=== PATIENT | female | born 1995 | race American Indian/Alaskan Native ===

== ENCOUNTER 2017-02-17 12:38 | Inpatient (IN) | payer OTHER ==
[2017-02-17] MEDS ORDERED: Sodium Chloride 0.9% 1,000 ML IV ONE (13:50)
[2017-02-17] MEDS ORDERED: Sodium Chloride 0.9% 1,000 ML ONE (13:59)
[2017-02-17 14:04] LABS: BASO # 0.1 K/uL (0.0-0.2); BASO % 0.6 % (0.0-2.0); EOS % 0.3 % (0.0-4.0); HEMATOCRIT 13.5 % (34.0-47.0); LYMPH # 2.5 K/uL (1.0-4.3); LYMPH % 23.2 % (20.0-40.0); MEAN CELL VOLUME 52.5 fL (81.0-99.0); MEAN CORPUSCULAR HEMOGLOBIN 14.4 pg (27.0-31.0); MEAN CORPUSCULAR HGB CONC 27.4 g/dL (33.0-37.0); MEAN PLATELET VOLUME 8.6 fL (7.2-11.7); MONO # 0.5 K/uL (0.0-0.8); MONO % 4.9 % (0.0-10.0); NRBC % 0.2 % (0.0-2.0); RED CELL DISTRIBUTION WIDTH 21.1 % (11.5-14.5)
[2017-02-17 14:12] LABS: CHLORIDE 103 mmol/L (98-107); INR 1.1; POTASSIUM 3.8 mmol/L (3.6-5.2); SODIUM 143 mmol/L (132-148)
[2017-02-17 14:14] LABS: BILIRUBIN,TOTAL 0.2 mg/dL (0.2-1.3); GFR AFRICAN-AMERICAN > 60
[2017-02-17 14:15] LABS: ALB/GLOB RATIO 1.5 (1.0-2.1); ALKALINE PHOSPHATASE 55 U/L (38-126); ALT/SGPT 13 U/L (9-52); AST/SGOT 32 U/L (14-36); BLOOD UREA NITROGEN 8 mg/dL (7-17); CARBON DIOXIDE 23 mmol/L (22-30); GLUCOSE,RANDOM 89 mg/dL (65-105); TOTAL PROTEIN 7.1 g/dL (6.3-8.3)
--- NOTE | 2017-02-17 15:59 | C.PDOC ---
Time Seen by Provider: 02/17/17 13:43 Chief Complaint (Nursing): Female Genitourinary History Per: Patient Onset/Duration Of Symptoms: Days (about 3 weeks) Current Symptoms Are (Timing): Still Present Severity: Moderate Alleviating Factors: None Additional History Per: Prior Records Abnormal Vaginal Bleeding: Yes Past Medical History Reviewed: Historical Data, Nursing Documentation, Vital Signs Vital Signs: Last Vital Signs Temp 98.0 F 02/17/17 13:05 Pulse 105 H 02/17/17 14:24 Resp 18 02/17/17 14:24 BP 110/49 L 02/17/17 14:24 Pulse Ox 99 02/17/17 14:24 - Medical History PMH: No Chronic Diseases Surgical History: No Surg Hx Family History: States: Unknown Family Hx - Social History Hx Tobacco Use: No Hx Alcohol Use: No Hx Substance Use: No - Immunization History Hx Tetanus Toxoid Vaccination: No Hx Influenza Vaccination: No Hx Pneumococcal Vaccination: No Review Of Systems Except As Marked, All Systems Reviewed And Found Negative. Constitutional: Positive for: Weakness. Negative for: Fever Cardiovascular: Positive for: Light Headedness. Negative for: Chest Pain Respiratory: Positive for: SOB with Excertion. Negative for: Hemoptysis Gastrointestinal: Negative for: Vomiting, Melena, Hematochezia, Hematemesis Genitourinary: Positive for: Vaginal Bleeding Musculoskeletal: Negative for: Neck Pain Skin: Negative for: Rash Neurological: Negative for: Weakness, Numbness, Seizures, Altered Mental Status Physical Exam - Physical Exam Appears: No Acute Distress Skin: Warm, Dry, Pale Head: Atraumatic, Normacephalic Eye(s): bilateral: PERRL, EOMI, Conjunctiva Pale Neck: Normal ROM, Supple Cardiovascular: Rhythm Regular Respiratory: Normal Breath Sounds, No Accessory Muscle Use Gastrointestinal/Abdominal: Soft Back: No CVA Tenderness Extremity: Normal ROM Neurological/Psych: Oriented x3, Normal Motor, Normal Sensation ED Course And Treatment - Laboratory Results Result Diagrams: 02/17/17 14:00 02/17/17 14:00 Lab Interpretation: Abnormal Interpretation Of Abnormal: Severe anemia. O2 Sat by Pulse Oximetry: 99 Pulse Ox Interpretation: Normal Progress Note: Pt was evaluated by Dr. Medrano (ICU). He states pt can be admitted on telemery floor. - Physician Consult Information Physician Contacted: Raquel A Rory ([employer]) Outcome Of Conversation: She wants pt to be admitted on medical service. She will consult. Progress - Interventions Interventions:: Observation, Intravenous fluid - Medications Administered Intravenous: Other (pRBC) - Data Reviewed Data Reviewed: Lab, Old records - Patient Status Patient status: Partially improved - Critical Care Citical Care: Excluding Proc Time Critical Care Time: 45 minutes - Continuity of Care Discussed patient case with:: Patient, ED Nurse, On-call PMD-pt unassigned Discussed pt. case with [employer] financial[employer] consultant/specialty: Obstetrics/Gynecology, Pulmonary/ Crit. Care - Patient Plan Patient Plan: Admission, Telemetry Disposition Discussed With DrGiorgio: Oren Kearns Comment: He accepted pt on hospitalist service. Doctor Will See Patient In The: Hospital Counseled Patient/Family Regarding: Studies Performed, Diagnosis - Disposition Disposition: HOSPITALIZED Disposition Time: 16:00 Condition: SERIOUS - Clinical Impression Clinical Impression: Severe anemia, Abnormal vaginal bleeding
[2017-02-17 16:15] VITALS: O2SAT 100
--- NOTE | 2017-02-17 16:27 | CP.PCM.HP ---
<Angely Escalante - Last Filed: 02/17/17 17:31> History of Present Illness - History of Present Illness History of Present Illness: Internal medicine H & P for Hospitalist service- Angely Escalante, PGY-1 Pt S & E at bedside. 21F w/no sig PMH admitted for symptomatic severe anemia x 3 weeks. Pt reports she started a normal period with normal blood flow/pad usage. Pt reports that her period just continued, becoming heavier over time until the past 2 weeks she has been using 1 super absorbant pad per hour, changing them when saturated. Pt reports blood flow is bright pink w/dark red blood clots. Pt reports family member recommended she come to hospital for evaluation last week , however patient did not report to ED until today due to B/L flank pains- sharp , non radiating, severe (09/19) intensity- did not take any thing to alleviate pain- came to hospital. Admits to SOB, POWELL, CARTWRIGHT, dizziness, N, blurry vision, palpitations with movement. Denies emesis, fevers, chills, constipation, diarrhea, hematuria, hematochezia, hemoptysis, cough, congestion, rhinorrhea. PMH: Denies PSH: Denies All: Denies SH: Denies ETOH, Tobacco, illicit drug use FH: Adopted- unknown PMD: Denies Outpatient obgyn: Denies Present on Admission - Present on Admission Any Indicators Present on Admission: No History of DVT/PE: No History of Uncontrolled Diabetes: No Urinary Catheter: No Decubitus Ulcer Present: No Review of Systems - Review of Systems All systems: reviewed and no additional remarkable complaints except - Constitutional Constitutional: Chills, Headache. absent: Fever - EENT Eyes: Blurred Vision, Change in Vision Ears: Dizziness Nose/Mouth/Throat: absent: Nasal Congestion, Sore Throat - Cardiovascular Cardiovascular: Dyspnea on Exertion, Palpitations. absent: Chest Pain, Leg Edema - Respiratory Respiratory: absent: Cough, Hemoptysis - Gastrointestinal Gastrointestinal: Abdominal Pain, Nausea. absent: Constipation, Diarrhea, Hematemesis, Hematochezia, Melena, Vomiting - Genitourinary Genitourinary: absent: Difficulty Urinating, Dysuria, Hematuria, Pyuria - Reproductive: Female Reproductive:Female: Currently Menstual, Heavy Menses, Abnormal Vaginal Bleeding , Vaginal Odor - Menstruation Menstruation: Abnormal Vaginal Bleeding - Musculoskeletal Musculoskeletal: absent: Back Pain, Numbness, Tingling - Integumentary Integumentary: absent: Lesions, New Lesions - Neurological Neurological: Dizziness. absent: Weakness Past Patient History - Past Social History Smoking Status: Never Smoked - PSYCHIATRIC Hx Substance Use: No - SURGICAL HISTORY Hx Surgeries: No - ANESTHESIA Hx Anesthesia: No Meds Allergies/Adverse Reactions: Allergies Allergy/AdvReac Type Severity Reaction Status Date / Time No Known Allergies Allergy Unverified 02/17/17 13:05 Physical Exam - Constitutional Appears: Non-toxic, No Acute Distress, Younger Than Stated Age - Head Exam Head Exam: ATRAUMATIC, NORMAL INSPECTION, NORMOCEPHALIC - Eye Exam Eye Exam: EOMI, Normal appearance, PERRL. absent: Scleral icterus Pupil Exam: NORMAL ACCOMODATION, PERRL - ENT Exam ENT Exam: Mucous Membranes Moist, Normal Exam Additional comments: under tongue - pale - Neck Exam Neck exam: Positive for: Full Rom, Normal Inspection - Respiratory Exam Respiratory Exam: Clear to Auscultation Bilateral, NORMAL BREATHING PATTERN. absent: Chest Wall Tenderness, Decreased Breath Sounds, Rales, Rhonchi, Wheezes , Respiratory Distress - Cardiovascular Exam Cardiovascular Exam: Tachycardia, +S1, +S2 - GI/Abdominal Exam GI & Abdominal Exam: Normal Bowel Sounds, Soft, Tenderness (B/L upper flanks). absent: Distended, Firm, Guarding, Hernia, Rigid - Extremities Exam Extremities exam: Positive for: full ROM, normal inspection. Negative for: pedal edema, tenderness - Back Exam Back exam: FULL ROM, NORMAL INSPECTION - Neurological Exam Neurological exam: Alert, CN II-XII Intact, Oriented x3 - Psychiatric Exam Psychiatric exam: Normal Affect, Normal Mood - Skin Skin Exam: Dry, Intact, Normal Color, Warm Results - Vital Signs Recent Vital Signs: Last Vital Signs Temp 98.4 F 02/17/17 16:14 Pulse 106 H 02/17/17 16:14 Resp 18 02/17/17 16:14 BP 116/65 02/17/17 16:14 Pulse Ox 100 02/17/17 16:14 - Labs Result Diagrams: 02/17/17 14:00 02/17/17 14:00 Labs: Laboratory Results - last 24 hr 02/17/17 14:00 WBC 11.0 H RBC 2.58 L Hgb 3.7 L* Hct 13.5 L MCV 52.5 L MCH 14.4 L MCHC 27.4 L RDW 21.1 H Plt Count 279 MPV 8.6 Neut % (Auto) 71.0 Lymph % (Auto) 23.2 [place] % (Auto) 4.9 Eos % (Auto) 0.3 Baso % (Auto) 0.6 Neut # 7.8 H Lymph # 2.5 [place] # 0.5 Eos # 0.0 Baso # 0.1 Differential Comment Smear Path Review PT 13.0 H INR 1.1 APTT 28 Sodium 143 Potassium 3.8 Chloride 103 Carbon Dioxide 23 Anion Gap 20 BUN 8 Creatinine 0.7 Est GFR ( Amer) > 60 Est GFR (Non-Af Amer) > 60 Random Glucose 89 Calcium 9.0 Total Bilirubin 0.2 AST 32 ALT 13 Alkaline Phosphatase 55 Total Protein 7.1 Albumin 4.2 Globulin 2.8 Albumin/Globulin Ratio 1.5 Beta HCG, Quant < 2.39 Blood Type O POSITIVE Antibody Screen Negative Assessment & Plan - Assessment and Plan (Free Text) Assessment: Severe symptomatic anemia Hgb 3.7 Currently bleeding Transfusing total of 4 units of pRBCs FU ferritin FU Iron FU TIBC FU % sat FU Prolactin level FU FSH FU LH FU Folate FU B12 FU retic count FU Haptoglobin Kilnman recs- Provera taper- 10mg TID x 7 days, 10mg BID x 7 days, 10mg QD x 7 days , FU TSH, FU FT4, FU Estradiol, Flagyl 500mg PO TID x 7 days Abdominal discomfort Tylenol PRN Zofran PRN FU transvaginal U/S FU pelvic U/S GI/DVT ppx SCDs Pepcid Contraindications to VTE ppx- bleed Dispo: Admit to tele VS Q4H Regular diet FU AM labs DW attending - Date & Time Date: 02/17/17 Time: 16:55 Decision To Admit - Pt Status Changed To: Hospital Disposition Of: Observation - . Bed Request Type: Telemetry Admitting Physician: Kenyatta Urrutia <Kenyatta Urrutia V - Last Filed: 02/17/17 22:49> Results - Vital Signs Recent Vital Signs: Last Vital Signs Temp 98.2 F 02/17/17 21:15 Pulse 95 H 02/17/17 21:15 Resp 17 02/17/17 21:15 BP 123/64 02/17/17 21:15 Pulse Ox 100 02/17/17 20:00 - Labs Result Diagrams: 02/17/17 14:00 02/17/17 14:00 Attending/Attestation - Attestation I have personally seen and examined this patient.: Yes I have fully participated in the care of the patient.: Yes I have reviewed all pertinent clinical information: Yes Notes (Text): Patient seen, evaluated in [facility] Bed 4 on 02/17/17 at approximately 4:25PM. Patient reporting abnormal heavy periods since at the age 14; Patient reports LMP about 3 weeks ago, using and changing sanitary napkin every hour, soaked through. Patient reports first time period has not stopped. Patient denies OCP use. Patient denies trauma/foreign body insertion/denies activity with sex toys. Patient has not had a formal workup for abnormal heavy infrequent periods. Patient reports she felt fatigue, near-syncope, tiredness, and not wanting to get out of bed since last week, and was advised by biological mom to come sooner but did not. Patient at time of examination receiving first unit of PRBC. Discussed the case in house cra, Dr. Valadez who also interviewed patient at bedside, advised hormone workup, and Provera PO titration, as well as US. Patient will likely need 3-4 units of PRBC given the severity of her anemia. Patient denies BRBPR, denies melanotic stool, denies tar stools. Patient is not sexually active at this time. Patient denies possibility of . Patient ordered for additional 2 units of PRBC. will follow-up hemoglobin in AM. Ordered for anema workup including iron studies, reti count, b12, haptoglobin, and folate. Admitting orders discussed with day-time resident. Help appreciated by Ob-gynecology service. Assessment/Plan 1)Symptomatic anemia * Observation telemetry * Hgb 3.7 * Vaginal bleeding the source * Will transfuse at least 3 units of PRBC overnight and may need additional unit in the AM * Ordered for ferritin, iron, TIBC, iron saturation, B12, folate, haptoglobin, reticulocyte count * Ob-in house cra consult: Dr. Valadez-->help appreciated; recommended to start Provera taper- 10mg TID x 7 days, 10mg BID x 7 days, 10mg QD x 7 days * ordered or prolactin, FSH, LH, estradiol * Flagyl 500mg PO TID x 7 days to cover for bacterial vaginosis 2) Abdominal discomfort * Tylenol PRN * Zofran PRN * FU transvaginal U/S * FU pelvic U/S * Flagyl 500mg PO TID x 7 days to cover for bacterial vaginosis 3) GI/DVT ppx * SCDs for DVT ppx * Pepcid 20mg PO bid for gi ppx * Contraindications to VTE ppx- bleed
--- NOTE | 2017-02-17 19:31 | CP.PCM.CON ---
History of Present Illness - History of Present Illness History of Present Illness: Patient seen and evaluated approximately 1645 hours: received in E.D. cubicle # 5 in good spirits. (Medical Attending Dr. Isabel with patient, completing her assessment) 21 y.o. LMP 01/26/17 to present (i.e., 3 weeks), c/o lightheadedness, dizziness, shortness of breath with ambulation x 1 week, and fatigue. Denies loss of consciousness. This in association of continual menstruation, heavier flow in this past 1 week. Changing sanitary napkin hourly. (+) clots. Onset of bilateral mid-torso pain this morning; pain scale 10/10 - has taken on pain meds. 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 This is the first time with prolonged menses. P Ob: nullip P PUPPY WALKER: 14 x 2-3 times per year until age 20; then monthly until LMP x 7. Denies STIs. 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 Not heterosexually active x >= 2 years. PMH: denies PSH: denies NKDA Meds: denies Soc Hx: denies tobacco, illicit drug use; social EtOH use. Moved from [place] 1 month ago; adjusting. 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 Fam Hx: adpoted - doesn't know biological family Review of Systems - Constitutional Constitutional: As Per HPI - Reproductive: Female Reproductive:Female: As Per HPI - Menstruation Menstruation: As Per HPI - Neurological Neurological: As Per HPI Past Patient History - Past Medical History & Family History Past Medical History?: No Pertinent Family History: Indeterminable - Past Social History Smoking Status: Never Smoked Alcohol: Social Drugs: Denies - CARDIAC Hx Cardiac Disorders: No - PULMONARY Hx Respiratory Disorders: No - NEUROLOGICAL Hx Neurological Disorder: No - HEENT Hx HEENT Problems: No - RENAL Hx Chronic Kidney Disease: No Other/Comment: UTI - ENDOCRINE/METABOLIC Hx Endocrine Disorders: No - HEMATOLOGICAL/ONCOLOGICAL Hx Blood Disorders: No - INTEGUMENTARY Hx Dermatological Problems: No - MUSCULOSKELETAL/RHEUMATOLOGICAL Hx Musculoskeletal Disorders: No Hx Falls: No - GASTROINTESTINAL Hx Gastrointestinal Disorders: No - GENITOURINARY/GYNECOLOGICAL Hx Genitourinary Disorders: No LMP:: 01/26/2017 : 0 Para: 0 Termination of : 0 - PSYCHIATRIC Hx Psychophysiologic Disorder: No Hx Substance Use: No - SURGICAL HISTORY Hx Surgeries: No - ANESTHESIA Hx Anesthesia: No Meds Allergies/Adverse Reactions: Allergies Allergy/AdvReac Type Severity Reaction Status Date / Time No Known Allergies Allergy Unverified 02/17/17 13:05 - Medications Medications: Current Medications Acetaminophen (Tylenol 325mg Tab) 650 mg PO Q6H PRN PRN Reason: Pain, moderate (4-7) Famotidine (Pepcid) 20 mg PO BID [facility] Medroxyprogesterone Acetate (Provera) 10 mg PO TID [facility] Stop: 02/24/17 18:01 Medroxyprogesterone Acetate (Provera) 10 mg PO DAILY [facility] Medroxyprogesterone Acetate (Provera) 10 mg PO BID [facility] Stop: 03/03/17 18:01 Metronidazole (Flagyl) 500 mg PO TID [facility] Stop: 02/24/17 18:01 Ondansetron HCl (Zofran Inj) 4 mg IVP Q6 PRN PRN Reason: Nausea/Vomiting Physical Exam - Constitutional Appears: Well, No Acute Distress - Head Exam Head Exam: NORMAL INSPECTION - Eye Exam Eye Exam: Normal appearance - Neck Exam Neck exam: Positive for: Full Rom, Normal Inspection - Respiratory Exam Respiratory Exam: Clear to Auscultation Bilateral - Cardiovascular Exam Cardiovascular Exam: Tachycardia - GI/Abdominal Exam GI & Abdominal Exam: Normal Bowel Sounds Additional comments: Obese - Exam External exam: NORMAL EXTERNAL EXAM Additional comments: (+) cervical motion tenderness. Anteverted uterus, 8 weeks. no appreciable adnexal masses. (+) bilateral adnexal discomfort to deep palpation. Moderate amount of dark brown blood on examining glove; (+) pungent/fishy odor. - Extremities Exam Extremities exam: Positive for: full ROM, normal inspection - Neurological Exam Neurological exam: Alert, Normal Gait, Oriented x3 - Psychiatric Exam Psychiatric exam: Normal Affect, Normal Mood Results - Vital Signs Recent Vital Signs: Last Vital Signs Temp 98.1 F 02/17/17 18:38 Pulse 91 H 02/17/17 18:38 Resp 16 02/17/17 18:38 BP 109/48 L 02/17/17 18:38 Pulse Ox 100 02/17/17 18:00 - Labs Result Diagrams: 02/17/17 14:00 02/17/17 14:00 Assessment & Plan - Assessment and Plan (Free Text) Assessment: 21 yo P0, menometrorrhagia with symptomatic anemia - admitted for blood transfusion. Start provera taper to stop menses. Patient to be evaluated by medical team for any other possible aetiology. From line assembler aircraft perspective, will assess for variation of PCOS, or other endocrine aetiology. Weight gain and stress of moving probable contributing factors. It was impressed upon patent to follow up with line assembler aircraft provider upon discharge. Recommend Dr. Acevedo, [facility], Friday mornings, [facility]. Patient expressed an understanding and agrees. Presumptive bacterial vaginitis - explained to patient; will treat. Patient in good condition. Plan: 1) Blood transfusion and related evaluation for anemia, per primary medical team 2) transvaginal ultrasound 3) Provera taper start now: 10 mg po TID x 7d, then BID x 7 days, then QD x 7 days. 4) LH, FSH, estradiol; prolactin; thyroid panel 5) Flagyl 500 mg p.o. BID x 7 days Thank you for the pleasure of this consultation - Date & Time Date: 02/17/17 Time: 17:00
[2017-02-18 01:00] LABS: IRON 106 ug/dL (37-170)
[2017-02-18 02:06] LABS: FOLATE 13.3 ng/mL
[2017-02-18 05:25] LABS: BASO # 0.1 K/uL (0.0-0.2); BASO % 0.5 % (0.0-2.0); EOS % 0.3 % (0.0-4.0); HEMATOCRIT 25.9 % (34.0-47.0); LYMPH # 2.9 K/uL (1.0-4.3); LYMPH % 29.1 % (20.0-40.0); MEAN CELL VOLUME 71.6 fL (81.0-99.0); MEAN CORPUSCULAR HGB CONC 32.1 g/dL (33.0-37.0); MEAN PLATELET VOLUME 9.1 fL (7.2-11.7); MONO # 0.7 K/uL (0.0-0.8); MONO % 6.8 % (0.0-10.0); NRBC % 0.2 % (0.0-2.0); RED CELL DISTRIBUTION WIDTH 34.9 % (11.5-14.5); WHITE BLOOD COUNT 9.8 K/uL (4.8-10.8)
[2017-02-18 05:40] LABS: CHLORIDE 105 mmol/L (98-107); POTASSIUM 3.9 mmol/L (3.6-5.2); SODIUM 140 mmol/L (132-148)
[2017-02-18 05:42] LABS: AST/SGOT 24 U/L (14-36); BILIRUBIN,TOTAL 1.6 mg/dL (0.2-1.3); CARBON DIOXIDE 21 mmol/L (22-30); GFR AFRICAN-AMERICAN > 60
[2017-02-18 05:43] LABS: ALB/GLOB RATIO 1.3 (1.0-2.1); ALKALINE PHOSPHATASE 41 U/L (38-126); ALT/SGPT 16 U/L (9-52); BLOOD UREA NITROGEN 10 mg/dL (7-17); GLUCOSE,RANDOM 84 mg/dL (65-105); MAGNESIUM 2.2 mg/dL (1.6-2.3); TOTAL PROTEIN 6.1 g/dL (6.3-8.3)
[2017-02-18 05:59] LABS: FSH 4.2 mIU/mL
[2017-02-18 06:49] LABS: ESTRADIOL (E2) 76.3 pg/mL
--- NOTE | 2017-02-18 09:43 | US ---
Pelvic ultrasound History: Vaginal bleeding. Comparison: None available. Technique: Real-time sonography was performed through the pelvis utilizing transabdominal and transvaginal techniques. Findings: Uterus: 7.7 x 4.2 x 5.2 centimeters. Retroverted. Endometrium is abnormally thickened measuring up to 2 centimeters. No areas of abnormal vascularity within the endometrium are demonstrated on color Doppler examination. Suggestion of an endometrial mass surrounded by fluid within the endometrial cavity. Right ovary: 3.6 x 2.7 x 3.8 centimeters. Subcentimeter follicles. Normal flow. Left ovary: 4.3 x 2.4 x 2.9 centimeters. Subcentimeter follicles. Normal flow. Small amount of free fluid noted within the posterior pelvic cul-de-sac. Impression: Abnormal endometrial thickening. Appearance is suggestive for a mass surrounded by fluid within the endometrial canal. This may represent blood clot and or endometrial polyp. Submucosal myoma or endometrial carcinoma are considered less likely possibilities although not entirely excluded. Continued interval followup sonographically and or correlation with pelvic MRI may be helpful if clinically indicated. These findings were preliminarily reported at 8:33 p.m. on 02/17/[address] Virgiina Mack from [employer].
[2017-02-18] MEDS ORDERED: Saccharomyces Boulardi 250 mg Cap PO SCH (10:00)
[2017-02-18 11:33] VITALS: RESP 18
--- NOTE | 2017-02-18 12:00 | CARD ---
APPROVED REPORT EKG Measurement Heart [id number] <Conclusion> Normal sinus rhythm Normal ECG
[2017-02-18 14:01] LABS: BASO # 0.1 K/uL (0.0-0.2); BASO % 0.6 % (0.0-2.0); EOS % 0.2 % (0.0-4.0); HEMATOCRIT 28.3 % (34.0-47.0); LYMPH # 2.3 K/uL (1.0-4.3); LYMPH % 21.5 % (20.0-40.0); MEAN CELL VOLUME 71.7 fL (81.0-99.0); MEAN CORPUSCULAR HEMOGLOBIN 22.7 pg (27.0-31.0); MEAN CORPUSCULAR HGB CONC 31.6 g/dL (33.0-37.0); MONO # 0.5 K/uL (0.0-0.8); MONO % 4.6 % (0.0-10.0); NRBC % 0.4 % (0.0-2.0); RED CELL DISTRIBUTION WIDTH 35.4 % (11.5-14.5); WHITE BLOOD COUNT 10.8 K/uL (4.8-10.8)
--- NOTE | 2017-02-18 14:12 | CP.PCM.DIS ---
<EscalanteAngely - Last Filed: 02/18/17 14:14> Provider - Provider Date of Admission: 02/17/17 16:02 Attending physician: Oren Kearns MD Primary care physician: None- refer to [facility] Consults: [facility] Time Spent in preparation of Discharge (in minutes): 60 Hospital Course - Lab Results Lab Results: Most Recent Lab Values WBC 10.8 K/uL (4.8-10.8) 02/18/17 13:56 RBC 3.95 Mil/uL (3.80-5.20) 02/18/17 13:56 Hgb 9.0 g/dL (11.0-16.0) L 02/18/17 13:56 Hct 28.3 % (34.0-47.0) L 02/18/17 13:56 MCV 71.7 fL (81.0-99.0) L 02/18/17 13:56 MCH 22.7 pg (27.0-31.0) L 02/18/17 13:56 MCHC 31.6 g/dL (33.0-37.0) L 02/18/17 13:56 RDW 35.4 % (11.5-14.5) H 02/18/17 13:56 Plt Count 205 K/uL (130-400) 02/18/17 13:56 MPV 9.0 fL (7.2-11.7) 02/18/17 13:56 Neut % (Auto) 73.1 % (50.0-75.0) 02/18/17 13:56 Lymph % (Auto) 21.5 % (20.0-40.0) 02/18/17 13:56 [place] % (Auto) 4.6 % (0.0-10.0) 02/18/17 13:56 Eos % (Auto) 0.2 % (0.0-4.0) 02/18/17 13:56 Baso % (Auto) 0.6 % (0.0-2.0) 02/18/17 13:56 Neut # 7.9 K/uL (1.8-7.0) H 02/18/17 13:56 Lymph # 2.3 K/uL (1.0-4.3) 02/18/17 13:56 [place] # 0.5 K/uL (0.0-0.8) 02/18/17 13:56 Eos # 0.0 K/uL (0.0-0.7) 02/18/17 13:56 Baso # 0.1 K/uL (0.0-0.2) 02/18/17 13:56 Differential Comment 02/17/17 14:00 Smear Path Review 02/17/17 14:00 Retic Count 2.2 % (0.5-1.5) H 02/18/17 00:25 PT 13.0 SECONDS (9.7-12.2) H 02/17/17 14:00 INR 1.1 02/17/17 14:00 APTT 28 SECONDS (21-34) 02/17/17 14:00 Sodium 140 mmol/L (132-148) 02/18/17 05:21 Potassium 3.9 mmol/L (3.6-5.2) 02/18/17 05:21 Chloride 105 mmol/L (98-107) 02/18/17 05:21 Carbon Dioxide 21 mmol/L (22-30) L 02/18/17 05:21 Anion Gap 18 (10-20) 02/18/17 05:21 BUN 10 mg/dL (7-17) 02/18/17 05:21 Creatinine 0.7 MG/DL (0.7-1.2) 02/18/17 05:21 Est GFR ( Amer) > 60 02/18/17 05:21 Est GFR (Non-Af Amer) > 60 02/18/17 05:21 Random Glucose 84 mg/dL (65-105) 02/18/17 05:21 Calcium 8.0 mg/dl (8.6-10.4) L 02/18/17 05:21 Magnesium 2.2 mg/dL (1.6-2.3) 02/18/17 05:21 Iron 106 ug/dL (37-170) 02/18/17 00:25 TIBC 437 ug/dL (250-450) 02/18/17 00:25 % Saturation 24 (20-55) 02/18/17 00:25 Ferritin 3.6 ng/mL 02/18/17 00:25 Total Bilirubin 1.6 mg/dL (0.2-1.3) H 02/18/17 05:21 AST 24 U/L (14-36) 02/18/17 05:21 ALT 16 U/L (9-52) 02/18/17 05:21 Alkaline Phosphatase 41 U/L (38-126) 02/18/17 05:21 Total Protein 6.1 g/dL (6.3-8.3) L 02/18/17 05:21 Albumin 3.5 g/dL (3.5-5.0) 02/18/17 05:21 Globulin 2.7 gm/dL (2.2-3.9) 02/18/17 05:21 Albumin/Globulin Ratio 1.3 (1.0-2.1) 02/18/17 05:21 Vitamin B12 264 pg/mL (239-931) 02/18/17 00:25 Folate 13.3 ng/mL 02/18/17 00:25 Free T4 1.24 ng/dL (0.78-2.19) 02/18/17 05:21 TSH 3rd Generation 4.10 mIU/L (0.46-4.68) 02/18/17 05:21 Estradiol (E2) Level 76.3 pg/mL 02/18/17 05:21 FSH 3rd Generation 4.2 mIU/mL 02/18/17 05:21 Prolactin 16.8 ng/mL (3.0-18.9) 02/18/17 05:21 Beta HCG, Quant < 2.39 mIU/ML 02/17/17 14:00 Blood Type O POSITIVE 02/17/17 14:00 Antibody Screen Negative 02/17/17 14:00 - Hospital Course Hospital Course: On hospital admission 21F w/no sig PMH admitted for symptomatic severe anemia x 3 weeks. Pt reports she started a normal period with normal blood flow/pad usage. Pt reports that her period just continued, becoming heavier over time until the past 2 weeks she has been using 1 super absorbant pad per hour, changing them when saturated. Pt reports blood flow is bright pink w/dark red blood clots. Pt reports family member recommended she come to hospital for evaluation last week , however patient did not report to ED until today due to B/L flank pains- sharp , non radiating, severe (09/19) intensity- did not take any thing to alleviate pain- came to hospital. Admits to SOB, POWELL, CARTWRIGHT, dizziness, N, blurry vision, palpitations with movement. Denies emesis, fevers, chills, constipation, diarrhea, hematuria, hematochezia, hemoptysis, cough, congestion, rhinorrhea. Hospital course Pt admitted to hospital for blood product administration and medical management of symptomatic anemia. Pt seen/evaluated by gynecology with recommendations for Provera. Pt consented for blood prodcuts, received 4 units pRBCs total - Hbg improved from 3.8 to 8.3. Bleeding decreased significantly with initial of Provera. Symptoms resolved with blood product administration. Iron studies, hormone studies were WNL. Pelvic ultrasound positive for abnormal endometrial thickening. Appearance suggestive for a mass surrounded by fluid within the endometrial canal. May represent blood clot or endometrial polyp. Submucosal myoma or endometrial carcinoma are considered less likely possibilities although not entirely excluded. Continued interval followup sonographically and or correlation with pelvic MRI may be helpful if clinically indicated. Pt stabilized, ready for discharge with close follow up in [facility]. Pt expresses understanding. Diagnoses menometorrhagia, severe symptomatic anemia On hospital discharge Patient cleared for discharge as per Dr. Urrutia. Patient is to follow up with the [facility] for the remaining pending test results that have not resulted yet as well as establishing gynecological health care. Pt has been given appointment for February 26 at 8am. Patient is being discharged on Provera taper as specified by inpatient gynecology. Patient is also being discharged on Flagyl and Floraster. Please complete all medications as specified. If you have a recurrence of symptoms, please return to hospital. Medications metroNIDAZOLE [Flagyl] 500 mg PO TID #21 tab Saccharomyces Boulardi [Florastor] 250 mg PO BID #14 cap MedroxyPROGESTERone [Provera] 10 mg PO DAILY #7 tab MedroxyPROGESTERone [Provera] 10 mg PO BID #14 tab MedroxyPROGESTERone [Provera] 10 mg PO TID #21 tab - Date & Time of H&P Date of H&P: 02/17/17 Time of H&P: 16:19 Discharge Exam - Head Exam Head Exam: NORMAL INSPECTION Discharge Plan - Discharge Medications Prescriptions: metroNIDAZOLE [Flagyl] 500 mg PO TID #21 tab Saccharomyces Boulardi [Florastor] 250 mg PO BID #14 cap MedroxyPROGESTERone [Provera] 10 mg PO DAILY #7 tab MedroxyPROGESTERone [Provera] 10 mg PO BID #14 tab MedroxyPROGESTERone [Provera] 10 mg PO TID #21 tab - Follow Up Plan Condition: SERIOUS Disposition: HOME/ ROUTINE Additional Instructions: Patient cleared for discharge as per Dr. Urrutia. Patient is to follow up with the [facility] clinic for the remaining pending test results that have not resulted yet as well as establishing gynecological health care. Pt has been given appointment for February 26 at 8am. Patient is being discharged on Provera taper as specified by inpatient gynecology. Patient is also being discharged on Flagyl and Floraster. Please complete all medications as specified. If you have a recurrence of symptoms, please return to hospital. Referrals: [facility] at [facility] [Outside] <Kenyatta Urrutia V - Last Filed: 02/18/17 14:42> Provider - Provider Date of Admission: 02/17/17 16:02 Attending physician: Oren Kearns MD Hospital Course - Lab Results Lab Results: Most Recent Lab Values WBC 10.8 K/uL (4.8-10.8) 02/18/17 13:56 RBC 3.95 Mil/uL (3.80-5.20) 02/18/17 13:56 Hgb 9.0 g/dL (11.0-16.0) L 02/18/17 13:56 Hct 28.3 % (34.0-47.0) L 02/18/17 13:56 MCV 71.7 fL (81.0-99.0) L 02/18/17 13:56 MCH 22.7 pg (27.0-31.0) L 02/18/17 13:56 MCHC 31.6 g/dL (33.0-37.0) L 02/18/17 13:56 RDW 35.4 % (11.5-14.5) H 02/18/17 13:56 Plt Count 205 K/uL (130-400) 02/18/17 13:56 MPV 9.0 fL (7.2-11.7) 02/18/17 13:56 Neut % (Auto) 73.1 % (50.0-75.0) 02/18/17 13:56 Lymph % (Auto) 21.5 % (20.0-40.0) 02/18/17 13:56 [place] % (Auto) 4.6 % (0.0-10.0) 02/18/17 13:56 Eos % (Auto) 0.2 % (0.0-4.0) 02/18/17 13:56 Baso % (Auto) 0.6 % (0.0-2.0) 02/18/17 13:56 Neut # 7.9 K/uL (1.8-7.0) H 02/18/17 13:56 Lymph # 2.3 K/uL (1.0-4.3) 02/18/17 13:56 [place] # 0.5 K/uL (0.0-0.8) 02/18/17 13:56 Eos # 0.0 K/uL (0.0-0.7) 02/18/17 13:56 Baso # 0.1 K/uL (0.0-0.2) 02/18/17 13:56 Differential Comment 02/17/17 14:00 Smear Path Review 02/17/17 14:00 Retic Count 2.2 % (0.5-1.5) H 02/18/17 00:25 PT 13.0 SECONDS (9.7-12.2) H 02/17/17 14:00 INR 1.1 02/17/17 14:00 APTT 28 SECONDS (21-34) 02/17/17 14:00 Sodium 140 mmol/L (132-148) 02/18/17 05:21 Potassium 3.9 mmol/L (3.6-5.2) 02/18/17 05:21 Chloride 105 mmol/L (98-107) 02/18/17 05:21 Carbon Dioxide 21 mmol/L (22-30) L 02/18/17 05:21 Anion Gap 18 (10-20) 02/18/17 05:21 BUN 10 mg/dL (7-17) 02/18/17 05:21 Creatinine 0.7 MG/DL (0.7-1.2) 02/18/17 05:21 Est GFR ( Amer) > 60 02/18/17 05:21 Est GFR (Non-Af Amer) > 60 02/18/17 05:21 Random Glucose 84 mg/dL (65-105) 02/18/17 05:21 Calcium 8.0 mg/dl (8.6-10.4) L 02/18/17 05:21 Magnesium 2.2 mg/dL (1.6-2.3) 02/18/17 05:21 Iron 106 ug/dL (37-170) 02/18/17 00:25 TIBC 437 ug/dL (250-450) 02/18/17 00:25 % Saturation 24 (20-55) 02/18/17 00:25 Ferritin 3.6 ng/mL 02/18/17 00:25 Total Bilirubin 1.6 mg/dL (0.2-1.3) H 02/18/17 05:21 AST 24 U/L (14-36) 02/18/17 05:21 ALT 16 U/L (9-52) 02/18/17 05:21 Alkaline Phosphatase 41 U/L (38-126) 02/18/17 05:21 Total Protein 6.1 g/dL (6.3-8.3) L 02/18/17 05:21 Albumin 3.5 g/dL (3.5-5.0) 02/18/17 05:21 Globulin 2.7 gm/dL (2.2-3.9) 02/18/17 05:21 Albumin/Globulin Ratio 1.3 (1.0-2.1) 02/18/17 05:21 Vitamin B12 264 pg/mL (239-931) 02/18/17 00:25 Folate 13.3 ng/mL 02/18/17 00:25 Free T4 1.24 ng/dL (0.78-2.19) 02/18/17 05:21 TSH 3rd Generation 4.10 mIU/L (0.46-4.68) 02/18/17 05:21 Estradiol (E2) Level 76.3 pg/mL 02/18/17 05:21 FSH 3rd Generation 4.2 mIU/mL 02/18/17 05:21 Prolactin 16.8 ng/mL (3.0-18.9) 02/18/17 05:21 Beta HCG, Quant < 2.39 mIU/ML 02/17/17 14:00 Blood Type O POSITIVE 02/17/17 14:00 Antibody Screen Negative 02/17/17 14:00 Attending/Attestation - Attestation I have personally seen and examined this patient.: Yes I have fully participated in the care of the patient.: Yes I have reviewed all pertinent clinical information, including history, physical exam and plan: Yes Notes (Text): Patient seen, examined and case discussed with day-time resident. Patient seen this morning. Patient reports she feels remarkably better. Patient reports she has not needed to use any sanitary napkins this morning. Patient's hemoglobin improved to hgb 8 after completion of 4 units overnight. Patient has a repeat CBC this afternoon showing Hgb: 9.0. Patient is ambulatory, denies dizziness, denies lightheadedness, denies shortness of breathe. Vaginal bleeding is controlled with Provera at this time. Patient is ambulatory and verified by nursing staff. Hormone levels are normal. Discussed discharge order and discharge instructions with day-time resident and patient at bedside. Per obstetrics gynecology physician recommendation, patient to complete Provera taper and to complete Flagyl to cover for bacterial vaginosis. Patient advised to follow-up in the [facility] ([phone]) within one week of discharge. Patient to follow-up with obstetrics gynecology physician on 02/26/17 (Dr Acevedo) who is also located in the clinic for follow-up abdominal/pelvic US results. Prescriptions upon discharge: * Provera taper- 10mg TID x 7 days, 10mg BID x 7 days, 10mg QD x 7 days * Flagyl 500mg PO TID x 7 days to cover for bacterial vaginosis (take with yogurt and refrain from alcohol) This is a summary of patient's hospitalization. Please refer to EMR for further details. Assessment/Plan 1)Symptomatic anemia * Observation telemetry * Hgb 3.7-->8.0-->9.0 * Vaginal bleeding the source-->controlled with Provera * Tolerated 4 units of PRBC over night, no adverse reaction noted * Iron studies are normal but drawn during the blood transfusion; repeat outpatient appointment. * Ob-obstetrics gynecology physician consult: Dr. Valadez-->help appreciated; recommended to start Provera taper- 10mg TID x 7 days, 10mg BID x 7 days, 10mg QD x 7 days * Hormone levels normal * Flagyl 500mg PO TID x 7 days to cover for bacterial vaginosis 2) Abdominal discomfort * Tylenol PRN * Zofran PRN * Flagyl 500mg PO TID x 7 days to cover for bacterial vaginosis * Ab US (02/18/17): abdominal endometrial thickening. Appearance is suggestive for a mass surrounded by fluid within the endometrial canal. Represent blood clot and/or endometrial polyp. Submucosal nyoma or endometrial carcinoma are considered less likely possibilities although not entirely excluded. Continued interval follow sonographically and or correlation with pelvic MRI may helpful if clinically indicated. 3) GI/DVT ppx * SCDs for DVT ppx * Pepcid 20mg PO bid for gi ppx * Contraindications to VTE ppx- bleed
[2017-02-18 15:44] VITALS: BP 125/64; PULSE 67; TEMP 98
== END 2017-02-18 16:30 | disposition home or self-care (01) | DRG 395 ==
LOC: C.ER 12:38 → C.9E 16:02 → C.9I 17:18
PROVIDERS: ADMIT Internal Medicine; ATTEND Internal Medicine
PROC: 30253N1 (ICD-10-PCS; principal; 2017-02-17)
DX: D64.9 Anemia, unspecified (principal); N76.0 Acute vaginitis; N92.1 Excessive and frequent menstruation with irregular cycle; R93.8 Abnormal findings on diagnostic imaging of other specified body structures

== ENCOUNTER 2017-02-26 13:45 | Inpatient (IN) | payer OTHER ==
[2017-02-26] MEDS ORDERED: Sodium Chloride 0.9% 1,000 ML IV ONE (14:36)
--- NOTE | 2017-02-26 14:36 | C.PDOC ---
History Of Present Illness 21 y/o female is sent to the ED by clinic for persistent vaginal bleeding since January 26, 2017. Patient reports sharp right sided abdominal pain since last week. She is accompanied by note from clinic which indicates possible D&C. Patient admits to a "little chills," but denies dizziness, headache, fever, shortness of breath, chest pain, or other complaints. Time Seen by Provider: 02/26/17 14:22 Chief Complaint (Nursing): Female Genitourinary History Per: Patient History/Exam Limitations: no limitations Onset/Duration Of Symptoms: Days, Persistent Current Symptoms Are (Timing): Still Present Quality Of Discomfort: Sharp, "Pain" Recent travel outside of the [place]: No Past Medical History Reviewed: Historical Data, Nursing Documentation, Vital Signs Vital Signs: Last Vital Signs Temp 97.7 F 02/26/17 18:00 Pulse 85 02/26/17 18:00 Resp 20 02/26/17 18:00 BP 112/63 02/26/17 18:00 Pulse Ox 100 02/26/17 18:00 - Medical History PMH: No Chronic Diseases Surgical History: No Surg Hx - [facility] Procedures TRANSFUSE NONAUT RED BLOOD CELLS IN PERIPH ART, PERC (02/17/17) Family History: States: Unknown Family Hx - Social History Hx Tobacco Use: No Hx Alcohol Use: No Hx Substance Use: No - Immunization History Hx Tetanus Toxoid Vaccination: No Hx Influenza Vaccination: No Hx Pneumococcal Vaccination: No Review Of Systems Constitutional: Negative for: Fever Cardiovascular: Negative for: Chest Pain Respiratory: Negative for: Shortness of Breath Gastrointestinal: Positive for: Abdominal Pain (right sided) Genitourinary: Positive for: Vaginal Bleeding Neurological: Negative for: Headache, Dizziness Physical Exam - Physical Exam Appears: Non-toxic, No Acute Distress Skin: Warm, Dry, No Diaphoretic, No Pale Head: Atraumatic, Normacephalic Eye(s): bilateral: Normal Inspection Neck: Normal ROM Chest: Symmetrical Cardiovascular: Rhythm Regular Respiratory: Normal Breath Sounds, No Rales, No Rhonchi, No Wheezing Gastrointestinal/Abdominal: Soft, Tenderness (suprapubic), No Distention, No Guarding, No Rebound Back: Normal Inspection, No CVA Tenderness Extremity: Normal ROM, No Swelling Neurological/Psych: Oriented x3, Normal Speech Gait: Steady ED Course And Treatment - Laboratory Results Result Diagrams: 02/26/17 17:34 02/26/17 15:07 Lab Interpretation: No Acute Changes O2 Sat by Pulse Oximetry: 100 (ra) Pulse Ox Interpretation: Normal Medical Decision Making Medical Decision Making: Impression: persistent vaginal bleeding for a month; sent from clinic for possible D&C. Plan: * Blood Work * Urinalysis, Urine HCG * IV Fluids Prior record reviewed: Patient recently admitted 02/17-09/26 for severe anemia and vaginal bleeding, Hgb was 3.7 Progress: CBC results show Hgb of 7.[address] Brown to discuss case and indicated for me to contact Dr Acevedo as he sent her to the ED. [address] to contact [address] Acevedo on cell phone and left voicemail. 1537 Dr Acevedo returns call to ED and states this is not private patient of his, this is clinic patient who he evaluated today. He recommends D&C and to call ob.hoop flaring machine operator helper bone process operator [address] Brown and she states she will come to ED to evaluate patient. 1555 Dr Brown arrives to ED. 1605 Dr Brown accepts patient to service and will take patient for D&C. Admitting orders were entered. Disposition - Disposition Disposition: HOSPITALIZED Disposition Time: 16:06 Condition: FAIR - POA Present On Arrival: None - Clinical Impression Clinical Impression: Severe anemia, Abnormal vaginal bleeding - PA / CONSERVATION WORKER / Resident Statement MD/DO has reviewed & agrees with the documentation as recorded. - Scribe Statement The provider has reviewed the documentation as recorded by the Scribe (Tamia Arnold) All medical record entries made by the Scribe were at my direction and personally dictated by me. I have reviewed the chart and agree that the record accurately reflects my personal performance of the history, physical exam, medical decision making, and the department course for this patient. I have also personally directed, reviewed, and agree with the discharge instructions and disposition. Decision To Admit - Pt Status Changed To: Hospital Disposition Of: Inpatient - Admit Certification Admit to Inpatient:: After my assessment, the patient will require hospitalization for at least two midnights. This is because of the severity of symptoms shown, intensity of services needed, and/or the medical risk in this patient being treated as an outpatient. - InPatient: Physician Admission Certification: I certify that this patient requires 2 or more midnights of care for the following reason:: Patient for OR by obgyn for active and continuous vaginal bleeding - . Bed Request Type: Regular Admitting Physician: Wagner Brown Patient Diagnosis: Severe anemia, Abnormal vaginal bleeding
[2017-02-26 15:18] LABS: BASO % 0.5 % (0.0-2.0); EOS % 0.3 % (0.0-4.0); LYMPH # 2.6 K/uL (1.0-4.3); LYMPH % 24.2 % (20.0-40.0); MEAN CELL VOLUME 72.3 fL (81.0-99.0); MEAN CORPUSCULAR HEMOGLOBIN 22.2 pg (27.0-31.0); MEAN CORPUSCULAR HGB CONC 30.7 g/dL (33.0-37.0); MEAN PLATELET VOLUME 9.3 fL (7.2-11.7); MONO # 0.7 K/uL (0.0-0.8); RED CELL DISTRIBUTION WIDTH 35.6 % (11.5-14.5); WHITE BLOOD COUNT 10.8 K/uL (4.8-10.8)
[2017-02-26 15:26] LABS: CHLORIDE 105 mmol/L (98-107); INR 1.2; SODIUM 141 mmol/L (132-148)
[2017-02-26 15:27] LABS: POTASSIUM 3.8 mmol/L (3.6-5.2)
[2017-02-26 15:29] LABS: ALB/GLOB RATIO 1.4 (1.0-2.1); ALKALINE PHOSPHATASE 55 U/L (38-126); ALT/SGPT 25 U/L (9-52); AST/SGOT 20 U/L (14-36); BILIRUBIN,TOTAL 0.2 mg/dL (0.2-1.3); BLOOD UREA NITROGEN 7 mg/dL (7-17); CARBON DIOXIDE 24 mmol/L (22-30); GFR AFRICAN-AMERICAN > 60; GLUCOSE,RANDOM 73 mg/dL (65-105); TOTAL PROTEIN 6.4 g/dL (6.3-8.3)
[2017-02-26 15:30] LABS: CALCIUM 8.6 mg/dl (8.6-10.4)
--- NOTE | 2017-02-26 16:06 | CP.PCM.HP ---
History of Present Illness - History of Present Illness History of Present Illness: OBGYN- Dr. Brown's service CC: vaginal bleeding HPI: 21 year old female with no significant PMHx presents with consistent vaginal bleeding since January 26, 2017. Patient was admitted last week for similar symptoms for which she was transfused several units of blood and started on Provera. Patient was asked to follow up with the OBGYN clinic the following week. A speculum exam was attempted in the OBGYN clinic today however patient was unable to tolerate exam and thus it was recommended that she would likely need anesthesia sedation as well as D and C. Patient states that bleeding worsened since prior admission; requiring approximately 5 pads a day now. Patient admits to adnexal tenderness particularly on the right. She denies current lightheadedness, chest pain, palpitations, nausea, vomiting, diarrhea, constipation at this time. Refer to prior OBGYN consult note from 02/17/17 PMH: Denies PSH: Denies All: Denies SH: Denies ETOH, Tobacco, illicit drug use FH: Adopted- unknown PMD: Denies Outpatient obgyn: Denies Present on Admission - Present on Admission Any Indicators Present on Admission: No Review of Systems - Constitutional Constitutional: Fatigue. absent: Fever, Frequent Falls, Headache - EENT Eyes: absent: Blurred Vision, Change in Vision Nose/Mouth/Throat: absent: Nasal Congestion, Nasal Discharge - Cardiovascular Cardiovascular: absent: Chest Pain, Chest Pain at Rest, Dyspnea - Respiratory Respiratory: absent: Dyspnea, Hemoptysis - Gastrointestinal Gastrointestinal: Abdominal Pain. absent: Nausea, Vomiting - Genitourinary Genitourinary: absent: Change in Urinary Stream, Difficulty Urinating - Reproductive: Female Reproductive:Female: Currently Menstual, Menses Variable, Cycle > 4 Weeks Between, Heavy Menses. absent: Vaginal Dryness, Vaginal Pruritis - Menstruation Menstruation: Currently Menstual, Menses >/= 8 Days - Musculoskeletal Musculoskeletal: absent: Back Pain, Neck Pain, Numbness - Integumentary Integumentary: Dry Skin. absent: Acne - Neurological Neurological: absent: Abnormal Gait, Abnormal Hearing - Psychiatric Psychiatric: absent: Anxiety Past Patient History - Past Medical History & Family History Past Medical History?: No - Past Social History Smoking Status: Never Smoked - CARDIAC Hx Cardiac Disorders: No - PULMONARY Hx Respiratory Disorders: No - NEUROLOGICAL Hx Neurological Disorder: No - HEENT Hx HEENT Problems: No - RENAL Hx Chronic Kidney Disease: No - ENDOCRINE/METABOLIC Hx Endocrine Disorders: No - HEMATOLOGICAL/ONCOLOGICAL Hx Blood Disorders: No - INTEGUMENTARY Hx Dermatological Problems: No - MUSCULOSKELETAL/RHEUMATOLOGICAL Hx Musculoskeletal Disorders: No Hx Falls: No - GASTROINTESTINAL Hx Gastrointestinal Disorders: No - GENITOURINARY/GYNECOLOGICAL Hx Genitourinary Disorders: No - PSYCHIATRIC Hx Substance Use: No - SURGICAL HISTORY Hx Surgeries: No - ANESTHESIA Hx Anesthesia: No Meds Allergies/Adverse Reactions: Allergies Allergy/AdvReac Type Severity Reaction Status Date / Time No Known Allergies Allergy Unverified 02/17/17 13:05 Physical Exam - Constitutional Additional comments: In mild distress - Head Exam Head Exam: ATRAUMATIC, NORMAL INSPECTION, NORMOCEPHALIC - Eye Exam Eye Exam: EOMI, Normal appearance, PERRL Pupil Exam: NORMAL ACCOMODATION Additional comments: conjunctival pallor - ENT Exam ENT Exam: Mucous Membranes Moist - Neck Exam Neck exam: Positive for: Full Rom, Normal Inspection - Respiratory Exam Respiratory Exam: NORMAL BREATHING PATTERN. absent: Decreased Breath Sounds, Wheezes - Cardiovascular Exam Cardiovascular Exam: +S1, +S2. absent: Tachycardia - GI/Abdominal Exam GI & Abdominal Exam: Soft, Tenderness - Exam Speculum exam: Vaginal Bleeding Additional comments: profuse vaginal bleeding - Extremities Exam Extremities exam: Positive for: full ROM. Negative for: pedal edema, tenderness - Back Exam Back exam: FULL ROM, NORMAL INSPECTION - Neurological Exam Neurological exam: Alert, Oriented x3, Reflexes Normal - Psychiatric Exam Psychiatric exam: Normal Affect, Normal Mood - Skin Skin Exam: Dry, Intact, Pallor, Warm Results - Vital Signs Recent Vital Signs: Last Vital Signs Temp 98.1 F 02/26/17 14:13 Pulse 73 02/26/17 14:13 Resp 16 02/26/17 14:13 BP 134/79 02/26/17 14:13 Pulse Ox 100 02/26/17 15:56 - Labs Result Diagrams: 02/26/17 15:07 02/26/17 15:07 Labs: Laboratory Results - last 24 hr 02/26/17 15:07 WBC 10.8 RBC 3.46 L Hgb 7.7 L Hct 25.0 L MCV 72.3 L MCH 22.2 L MCHC 30.7 L RDW 35.6 H Plt Count 343 D MPV 9.3 Neut % (Auto) 69.0 Lymph % (Auto) 24.2 Mathews % (Auto) 6.0 Eos % (Auto) 0.3 Baso % (Auto) 0.5 Neut # 7.5 H Lymph # 2.6 Mathews # 0.7 Eos # 0.0 Baso # 0.0 PT 13.3 H INR 1.2 APTT 29 Sodium 141 Potassium 3.8 Chloride 105 Carbon Dioxide 24 Anion Gap 16 BUN 7 Creatinine 0.6 L Est GFR ( Amer) > 60 Est GFR (Non-Af Amer) > 60 Random Glucose 73 Calcium 8.6 Total Bilirubin 0.2 AST 20 ALT 25 Alkaline Phosphatase 55 Total Protein 6.4 Albumin 3.8 Globulin 2.7 Albumin/Globulin Ratio 1.4 Blood Type O POSITIVE Antibody Screen Negative Assessment & Plan - Assessment and Plan (Free Text) Assessment: 21 yo with menometrorrhagia and anemia not responding to prior provera therapy Plan: Emergent D and C Blood transfusion x 2 units, Fluids given Transvaginal ultrasound from prior admission on 02/17. Refer to complete report Will start hormone therapy s/p D and C Cont to monitor Hgb/Hct Cont to monitor
[2017-02-26] MEDS ORDERED: Lactated Ringer's 1,000 ML IV SCH (16:30)
[2017-02-26] MEDS ORDERED: Lactated Ringer's 1,000 ML IV ONE (16:36)
[2017-02-26 16:43] LABS: RBC URINE 791 /hpf (0-3); URINE BACTERIA MOD (<OCC); URINE BILIRUBIN NEGATIVE (NEGATIVE); URINE BLOOD 3+ (NEGATIVE); URINE COLOR Red (YELLOW); URINE GLUCOSE (UA) NORMAL (Normal); URINE KETONE NEGATIVE (NEGATIVE); URINE LEUKOCYTE ESTERASE 1+ Leu/uL (Negative); URINE PROTEIN 1+ mg/dL (NEGATIVE); URINE UROBILINOGEN NORMAL mg/dL (0.2-1.0); WBC URINE 21 /hpf (0-5)
[2017-02-26] MEDS ORDERED: Oxycodone/Acetaminophen 5/325 mg Tab PO PRN (16:58)
[2017-02-26] MEDS ORDERED: HYDROmorphone 0.5 mg/0.5 ml ISec IVP PRN (17:03)
--- NOTE | 2017-02-26 17:06 | PCM.SURG1 ---
Surgeon's Initial Post Op Note - Surgeon's Notes Surgeon: dr loco Risk Intern: none Type of Anesthesia: General LMA Anesthesia Administered By: dr ford Pre-Operative Diagnosis: 21yr with menometorrhagia Operative Findings: see the op report Post-Operative Diagnosis: same Operation Performed: suction d &c Specimen/Specimens Removed: ecc. emc Estimated Blood Loss: EBL {In ML}: 20 Blood Products Given: N/A, PRBC (2 unit) Drains Used: No Drains Post-Op Condition: Good Date of Surgery/Procedure: 02/26/17 Time of Surgery/Procedure: 17:30
[2017-02-26] MEDS ORDERED: ceFAZolin IV 2 gm in Dextrose 50 ML IVPB ONE (17:38)
[2017-02-26 17:56] LABS: BASO # 0.1 K/uL (0.0-0.2); BASO % 0.4 % (0.0-2.0); EOS % 0.3 % (0.0-4.0); HEMATOCRIT 24.2 % (34.0-47.0); LYMPH % 16.8 % (20.0-40.0); MEAN CELL VOLUME 73.6 fL (81.0-99.0); MEAN CORPUSCULAR HEMOGLOBIN 22.4 pg (27.0-31.0); MEAN CORPUSCULAR HGB CONC 30.5 g/dL (33.0-37.0); MEAN PLATELET VOLUME 8.8 fL (7.2-11.7); MONO # 0.6 K/uL (0.0-0.8); MONO % 4.9 % (0.0-10.0); RED CELL DISTRIBUTION WIDTH 35.2 % (11.5-14.5); WHITE BLOOD COUNT 11.9 K/uL (4.8-10.8)
--- NOTE | 2017-02-26 20:55 | OP ---
PROCEDURE DATE: 02/26/2017 PREOPERATIVE DIAGNOSIS: A 21-year-old 0, para 0 with menometrorrhagia. POSTOPERATIVE DIAGNOSIS: A 21-year-old 0, para 0 with menometrorrhagia. SURGEON: Wagner Brown MD EMPLOYEE PLACEMENT SPECIALIST SURGEON: None. ANESTHESIA: General LMA. ANESTHESIOLOGIST: Dr. Kan ____. COMPLICATIONS: None. ESTIMATED BLOOD LOSS: 20 mL. PROCEDURE PERFORMED: Suction D and C. PROCEDURE: After informed consent was obtained, the patient was brought to the operating room, place d on the table where general anesthesia was given. When anesthesia was found to be adequate, she was prepped and draped in normal sterile fashion. Examination found the cervix to be open and profuse b leeding, the uterus to be about 8 weeks size. No ____ adnexal masses. After that, the anterior lip of the cervix was grasped with a tenaculum. Then the suction 6-Malay was used. It was used to do t he suction. All the blood was taken out. After that, an ECC was done and then the sharp curretage f rom all the ruiz of the uterus was done, some of the ____ tissue was taken out. [facility] All the ruiz of the uterus was scraped. It was sent to pathology. After that, the tenacul um was taken out. The patient's bleeding was a little better. The patient tolerated the procedure. Lap, sponge, instruments correct x 2. Wagner Brown MD cc: [id number] TT: 02/26/2017 20:54:50 ashlyn
--- NOTE | 2017-02-27 07:00 | CP.PCM.PN ---
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 Ortiz's service Pt seen and examined in no acute distress. Patient s/p day 1 suction D and C. Patient has some mild RLQ tenderness. Patient states that vaginal bleeding has decreased, requiring the change of one pad since yesterday. She is ambulating and tolerating a diet. She denies subjective fevers or chills, nausea, vomiting , headaches, visual changes, chest pain, palpitations or paresthesias at this time. Objective - Vital Signs/Intake and Output Vital Signs (last 24 hours): Temp Pulse Resp BP Pulse Ox 97.6 F 75 20 99/65 L 99 02/27/17 01:35 02/27/17 01:35 02/27/17 01:35 02/27/17 01:35 02/27/17 01:35 Intake and Output: 02/27/17 02/27/17 06:59 18:59 Intake Total 656 Balance 656 - Medications Medications: Current Medications Lactated Ringer's (Lactated Ringer's) 1,000 mls @ 100 mls/hr IV .Q10H ANH Last Admin: 02/27/17 02:00 Dose: 100 mls/hr Ibuprofen (Motrin Tab) 600 mg PO Q8H PRN PRN Reason: Pain, moderate (4-7) Oxycodone/Acetaminophen (Percocet 5/325 Mg Tab) 1 tab PO Q4H PRN PRN Reason: Pain, severe (8-10) Stop: 03/01/17 16:59 - Labs Labs: 02/26/17 17:34 PT 13.3 SECONDS (9.7-12.2) H 02/26/17 15:07 INR 1.2 02/26/17 15:07 APTT 29 SECONDS (21-34) 02/26/17 15:07 - Constitutional Appears: Non-toxic, No Acute Distress - Head Exam Head Exam: ATRAUMATIC, NORMAL INSPECTION, NORMOCEPHALIC - Eye Exam Eye Exam: EOMI, Normal appearance, PERRL. absent: Scleral icterus Pupil Exam: NORMAL ACCOMODATION, PERRL. absent: Miosis, Mydriatic Additional comments: conjunctival pallor - ENT Exam ENT Exam: Mucous Membranes Moist - Neck Exam Neck Exam: Full ROM - Respiratory Exam Respiratory Exam: NORMAL BREATHING PATTERN. absent: Wheezes, Respiratory Distress, Stridor - Cardiovascular Exam Cardiovascular Exam: +S1, +S2. absent: Murmur - GI/Abdominal Exam GI & Abdominal Exam: Soft, Tenderness (RLQ), Normal Bowel Sounds. absent: Firm , Guarding, Rigid - Extremities Exam Extremities Exam: Full ROM, Normal Capillary Refill. absent: Calf Tenderness - Back Exam Back Exam: Full ROM - Neurological Exam Neurological Exam: Alert, Awake, CN II-XII Intact, Oriented x3 - Psychiatric Exam Psychiatric exam: Normal Affect, Normal Mood - Skin Skin Exam: Dry, Intact, Normal Color, Warm Assessment and Plan - Assessment and Plan (Free Text) Assessment: 21 yo with initial presentation of vaginal bleeding secondary to menometrorrhagia s/p day 1 suction D + C Plan: s/p suction D and C 02/26; patient tolerated procedure well. Blood transfusion x 2 units. Await morning CBC Hgb on admission 7.7, s/p procedure 02/26 Hgb 7.4. Hgb ordered but not performed following two transfusions. Will await morning Hgb Will discuss OCP therapy with patient and begin Monitor Hgb/Hct Pain control as needed- Patient states that she has not had a need to request at this time. Encourage ambulation, fluid intake, diet intake. Cont to monitor
[2017-02-27 07:36] LABS: HEMATOCRIT 32.9 % (34.0-47.0); LYMPH # 1.2 K/uL (1.0-4.3); LYMPH % 9.9 % (20.0-40.0); MEAN CELL VOLUME 75.4 fL (81.0-99.0); MEAN CORPUSCULAR HGB CONC 31.8 g/dL (33.0-37.0); MEAN PLATELET VOLUME 9.1 fL (7.2-11.7); MONO # 0.2 K/uL (0.0-0.8); MONO % 1.9 % (0.0-10.0); PLATELET COUNT 383 K/uL (130-400); RED CELL DISTRIBUTION WIDTH 30.4 % (11.5-14.5); WHITE BLOOD COUNT 12.3 K/uL (4.8-10.8)
[2017-02-27 07:40] LABS: CHLORIDE 106 mmol/L (98-107); POTASSIUM 4.1 mmol/L (3.6-5.2); SODIUM 139 mmol/L (132-148)
[2017-02-27 07:42] LABS: BILIRUBIN,TOTAL 0.6 mg/dL (0.2-1.3); GFR AFRICAN-AMERICAN > 60
[2017-02-27 07:43] LABS: ALB/GLOB RATIO 1.5 (1.0-2.1); ALKALINE PHOSPHATASE 52 U/L (38-126); ALT/SGPT 16 U/L (9-52); AST/SGOT 19 U/L (14-36); BLOOD UREA NITROGEN 9 mg/dL (7-17); CARBON DIOXIDE 23 mmol/L (22-30); GLUCOSE,RANDOM 106 mg/dL (65-105); PHOSPHOROUS 3.6 mg/dL (2.5-4.5); TOTAL PROTEIN 6.4 g/dL (6.3-8.3)
[2017-02-27 07:44] LABS: CALCIUM 8.9 mg/dl (8.6-10.4); MAGNESIUM 2.2 mg/dL (1.6-2.3)
[2017-02-27 09:30] LABS: NEUTROPHIL 85 % (50-75); TOTAL CELLS COUNTED 100
[2017-02-27 09:31] LABS: LARGE PLATELETS PRESENT
[2017-02-27 10:39] VITALS: BP 102/61; PULSE 72; RESP 18; TEMP 97.5; O2SAT 97
--- NOTE | 2017-02-27 11:13 | CP.PCM.DIS ---
Provider - Provider Date of Admission: 02/26/17 16:05 Attending physician: MD Bal Ireland MD Consults: Anesthesiologist (Dr. Webber) Time Spent in preparation of Discharge (in minutes): 35 Diagnosis - Discharge Diagnosis (1) Abnormal vaginal bleeding Status: Acute (2) Severe anemia Status: Acute Hospital Course - Lab Results Lab Results: Most Recent Lab Values WBC 12.3 K/uL (4.8-10.8) H 02/27/17 07:03 RBC 4.36 Mil/uL (3.80-5.20) 02/27/17 07:03 Hgb 10.5 g/dL (11.0-16.0) L D 02/27/17 07:03 Hct 32.9 % (34.0-47.0) L 02/27/17 07:03 MCV 75.4 fL (81.0-99.0) L 02/27/17 07:03 MCH 24.0 pg (27.0-31.0) L 02/27/17 07:03 MCHC 31.8 g/dL (33.0-37.0) L 02/27/17 07:03 RDW 30.4 % (11.5-14.5) H 02/27/17 07:03 Plt Count 383 K/uL (130-400) 02/27/17 07:03 MPV 9.1 fL (7.2-11.7) 02/27/17 07:03 Neut % (Auto) 88.2 % (50.0-75.0) H 02/27/17 07:03 Lymph % (Auto) 9.9 % (20.0-40.0) L 02/27/17 07:03 [place] % (Auto) 1.9 % (0.0-10.0) 02/27/17 07:03 Eos % (Auto) 0.0 % (0.0-4.0) 02/27/17 07:03 Baso % (Auto) 0.0 % (0.0-2.0) 02/27/17 07:03 Neut # 10.9 K/uL (1.8-7.0) H 02/27/17 07:03 Lymph # 1.2 K/uL (1.0-4.3) 02/27/17 07:03 [place] # 0.2 K/uL (0.0-0.8) 02/27/17 07:03 Eos # 0.0 K/uL (0.0-0.7) 02/27/17 07:03 Baso # 0.0 K/uL (0.0-0.2) 02/27/17 07:03 Neutrophils % (Manual) 85 % (50-75) H 02/27/17 07:03 Band Neutrophils % 1 % (0-2) 02/27/17 07:03 Lymphocytes % (Manual) 11 % (20-40) L 02/27/17 07:03 Monocytes % (Manual) 3 % (0-10) 02/27/17 07:03 Platelet Estimate Normal (NORMAL) 02/27/17 07:03 Large Platelets Present 02/27/17 07:03 Polychromasia Slight 02/27/17 07:03 Hypochromasia (manual) Slight 02/27/17 07:03 Poikilocytosis (manual Slight 02/27/17 07:03 Basophilic Stippling Slight 02/27/17 07:03 Anisocytosis (manual) Slight 02/27/17 07:03 Microcytosis (manual) Slight 02/27/17 07:03 Macrocytosis (manual) Slight 02/27/17 07:03 Target Cells Slight 02/27/17 07:03 Tear Drop Cells Slight 02/27/17 07:03 Ovalocytes Slight 02/27/17 07:03 [place] Cells Slight 02/27/17 07:03 PT 13.3 SECONDS (9.7-12.2) H 02/26/17 15:07 INR 1.2 02/26/17 15:07 APTT 29 SECONDS (21-34) 02/26/17 15:07 Sodium 139 mmol/L (132-148) 02/27/17 07:03 Potassium 4.1 mmol/L (3.6-5.2) 02/27/17 07:03 Chloride 106 mmol/L (98-107) 02/27/17 07:03 Carbon Dioxide 23 mmol/L (22-30) 02/27/17 07:03 Anion Gap 15 (10-20) 02/27/17 07:03 BUN 9 mg/dL (7-17) 02/27/17 07:03 Creatinine 0.6 MG/DL (0.7-1.2) L 02/27/17 07:03 Est GFR ( Amer) > 60 02/27/17 07:03 Est GFR (Non-Af Amer) > 60 02/27/17 07:03 Random Glucose 106 mg/dL (65-105) H 02/27/17 07:03 Calcium 8.9 mg/dl (8.6-10.4) 02/27/17 07:03 Phosphorus 3.6 mg/dL (2.5-4.5) 02/27/17 07:03 Magnesium 2.2 mg/dL (1.6-2.3) 02/27/17 07:03 Total Bilirubin 0.6 mg/dL (0.2-1.3) 02/27/17 07:03 AST 19 U/L (14-36) 02/27/17 07:03 ALT 16 U/L (9-52) 02/27/17 07:03 Alkaline Phosphatase 52 U/L (38-126) 02/27/17 07:03 Total Protein 6.4 g/dL (6.3-8.3) 02/27/17 07:03 Albumin 3.8 g/dL (3.5-5.0) 02/27/17 07:03 Globulin 2.6 gm/dL (2.2-3.9) 02/27/17 07:03 Albumin/Globulin Ratio 1.5 (1.0-2.1) 02/27/17 07:03 Urine Color Red (YELLOW) 02/26/17 16:27 Urine Clarity Hazy (Clear) 02/26/17 16:27 Urine pH 5.0 (5.0-8.0) 02/26/17 16:27 Ur Specific [place] 1.006 (1.003-1.030) 02/26/17 16:27 Urine Protein 1+ mg/dL (NEGATIVE) H 02/26/17 16:27 Urine Glucose (UA) Normal mg/dL (Normal) 02/26/17 16:27 Urine Ketones Negative mg/dL (NEGATIVE) 02/26/17 16:27 Urine Blood 3+ (NEGATIVE) H 02/26/17 16:27 Urine Nitrate Negative (NEGATIVE) 02/26/17 16:27 Urine Bilirubin Negative (NEGATIVE) 02/26/17 16:27 Urine Urobilinogen Normal mg/dL (0.2-1.0) 02/26/17 16:27 Ur Leukocyte Esterase 1+ Bri/uL (Negative) H 02/26/17 16:27 Urine WBC (Auto) 21 /hpf (0-5) H 02/26/17 16:27 Urine RBC (Auto) 791 /hpf (0-3) H 02/26/17 16:27 Ur Squamous Epith Cells 2 /hpf (0-5) 02/26/17 16:27 Urine Bacteria Mod (<OCC) H 02/26/17 16:27 Urine HCG, Qual Negative (NEGATIVE) 02/26/17 16:27 Blood Type O POSITIVE 02/26/17 15:07 Antibody Screen Negative 02/26/17 15:07 - Hospital Course Hospital Course: On admission : 21 year old female with no significant PMHx presents with consistent vaginal bleeding since January 26, 2017. Patient was admitted last week for similar symptoms for which she was transfused several units of blood and started on Provera. Patient was asked to follow up with the OBGYN clinic the following week. A speculum exam was attempted in the OBGYN clinic today however patient was unable to tolerate exam and thus it was recommended that she would likely need anesthesia sedation as well as D and C. Patient states that bleeding worsened since prior admission; requiring approximately 5 pads a day now. Patient admits to adnexal tenderness particularly on the right. She denies current lightheadedness, chest pain, palpitations, nausea, vomiting, diarrhea, constipation at this time. Hospital course: Patient found to be bleeding profusely on initial examination and thus an emergent suction d and c was recommended. Patient tolerated the procedure well and had a transfusion x2. Patient clinically stable for discharge with recommendations for follow up in the clinic in two weeks. Instructions explained to patient who is aware. Refer to discharge instructions. This is a brief summary of events. For a complete course, refer to the medical record. Discharge Exam - Head Exam Head Exam: ATRAUMATIC, NORMAL INSPECTION, NORMOCEPHALIC - Eye Exam Eye Exam: EOMI, Normal appearance, PERRL Pupil Exam: NORMAL ACCOMODATION Additional comments: conjunctival pallor - ENT Exam ENT Exam: Mucous Membranes Moist - Neck Exam Neck exam: Full Rom - Respiratory Exam Respiratory Exam: NORMAL BREATHING PATTERN. absent: Wheezes - Cardiovascular Exam Cardiovascular Exam: +S1, +S2. absent: Tachycardia - GI/Abdominal Exam GI & Abdominal Exam: Soft, Tenderness (RLQ) - Extremities Exam Extremities exam: full ROM - Back Exam Back exam: FULL ROM - Neurological Exam Neurological exam: Alert, CN II-XII Intact, Oriented x3 - Psychiatric Exam Psychiatric exam: Normal Affect, Normal Mood - Skin Skin Exam: Dry, Intact, Normal Color, Warm Discharge Plan - Follow Up Plan Condition: FAIR Disposition: HOME/ ROUTINE Instructions: Dilation and Curettage (DC) Additional Instructions: drink plenty of fluids, eat leafy green vegetables, observe for heavy vaginal bleeding and call 911 or go to er as soon as possible, handwashing Referrals: Rusty Acevedo [Staff Provider] -
== END 2017-02-27 10:30 | disposition home or self-care (01) | DRG 477 ==
LOC: C.ER 13:45 → C.4M 16:05
PROVIDERS: ADMIT Obstetrics & Gynecology; ATTEND Obstetrics & Gynecology
PROC: 30233N1 Transfusion of Nonautologous Red Blood Cells into Peripheral Vein, Percutaneous Approach (ICD-10-PCS; 2017-02-26)
PROC: 0UDB7ZX Extraction of Endometrium, Via Natural or Artificial Opening, Diagnostic (ICD-10-PCS; principal; 2017-02-26 17:00)
DX: D64.9 Anemia, unspecified (principal); N92.1 Excessive and frequent menstruation with irregular cycle